=== PATIENT | female | born 1955 | race Caucasian/White ===

== ENCOUNTER 2016-07-04 13:31 | Outpatient (CLI) | payer BC, OTHER | END 2016-07-04 13:32 | disposition home or self-care (01) | DX: R50.9 Fever, unspecified (principal); D89.9 Disorder involving the immune mechanism, unspecified ==

== ENCOUNTER 2016-08-13 15:10 | Outpatient (CLI) | payer OTHER | END 2016-08-13 15:11 | disposition home or self-care (01) | DX: I10 Essential (primary) hypertension (principal) ==

== ENCOUNTER 2016-08-30 10:01 | Outpatient (CLI) | payer OTHER | END 2016-08-30 10:02 | disposition home or self-care (01) | DX: L27.0 Generalized skin eruption due to drugs and medicaments taken internally (principal) ==

== ENCOUNTER 2017-07-04 12:56 | Outpatient (CLI) | payer OTHER ==
--- NOTE | 2017-07-04 17:57 | Ultrasound Report ---
DATE OF SERVICE: 07/04/2017 ULTRASOUND OF RIGHT AXILLA: 07/04/2017 CLINICAL INDICATION: Palpable abnormality. 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 FINDINGS: Ultrasound of the right axilla was performed, directed to the region of the palpable abnormality indicated by the patient. Unremarkable axillary lymph nodes are seen. The largest lymph node measures 3.4 x 1.7 x 1.1 cm, but demonstrates a large fatty hilum and no cortical thickening. No sonographically suspicious findings are identified. IMPRESSION: AXILLARY LYMPH NODE, LIKELY CORRELATING WITH THE PALPABLE ABNORMALITY, BUT NO CORTICAL THICKENING OR OTHER SUSPICIOUS FINDINGS ARE APPRECIATED. RECOMMENDATION: CONTINUED CLINICAL SURVEILLANCE. BIRADS CATEGORY 2-BENIGN FINDINGS. TD: 07/04/2017 18:57
--- NOTE | 2017-07-04 18:30 | Mammography Report ---
DATE OF SERVICE: 07/04/2017 DIGITAL DIAGNOSTIC BILATERAL MAMMOGRAM: 07/04/2017 CLINICAL INDICATION: Palpable abnormality right axilla on clinical examination. COMPARISON: 10/2014, 09/2012, 11/2009, 11/2008, 11/2007. TECHNIQUE: Bilateral CC and MLO views, right true lateral view. The breasts demonstrate fatty replacement bilaterally. Coarse and punctate, typically benign calcifications are present. No suspicious masses, clustered microcalcifications, or regions of architectural distortion are identified. Post-reduction changes are stable. Please also refer to right breast ultrasound of the same day. IMPRESSION: Benign findings, with an axillary lymph node on ultrasound without cortical thickening or suspicious changes. RECOMMENDATIONS: Routine annual screening unless otherwise clinically indicated. BIRADS category 2 benign findings. STANDARD QUALIFYING STATEMENTS 1. This examination was reviewed with the aid of Computed-Aided Detection (CAD). 2. A negative or benign imaging report should not delay biopsy if clinically suspicious findings are present. Consider surgical consultation if warranted. More than 5% of cancers are not identified by imaging. 3. Dense breasts may obscure an underlying neoplasm. TD: 07/04/2017 19:29
== END 2017-07-04 12:57 | disposition home or self-care (01) ==
LOC: DI 12:56
PROVIDERS: ATTEND Nurse Practitioner Family
DX: N63.10 Unspecified lump in the right breast, unspecified quadrant (principal)
CPT/HCPCS: 76642; 77066

== ENCOUNTER 2017-11-11 02:12 | Emergency (ER) | payer OTHER ==
[2017-11-11 02:38] LABS: BASOPHILS % (AUTO) 0.9 %; EOSINOPHILS # (AUTO) 0.1 10^3/uL (0.0-0.7); EOSINOPHILS % (AUTO) 2.7 %; HGB - HEMOGLOBIN 14.1 g/dL (12.0-16.0); LYMPHOCYTES # (AUTO) 0.8 10^3/uL (1.5-3.5); MEAN CORPUSCULAR HEMOGLOBIN 33.7 pg (27.0-31.0); MEAN CORPUSCULAR HGB CONC 34.2 g/dL (32.0-36.0); MEAN CORPUSCULAR VOLUME 98.6 fL (81.0-99.0); MEAN PLATELET VOLUME 7.7 fL (7.9-10.8); MONOCYTES # (AUTO) 0.5 10^3/uL (0.0-1.0); MONOCYTES % (AUTO) 11.6 %; NEUTROPHILS # (AUTO) 2.8 10^3/uL (1.5-6.6); NEUTROPHILS % (AUTO) 65.8 %; PLT - PLATELET COUNT 170 10^3/uL (130-450); RED BLOOD COUNT 4.18 10^6/uL (4.20-5.40); RED CELL DISTRIBUTION WIDTH 16.3 % (12.0-15.0); WHITE BLOOD COUNT 4.2 x10^3/uL (4.8-10.8)
[2017-11-11 02:49] LABS: ALBUMIN/GLOBULIN RATIO 1.5 (1.0-2.2); BILIRUBIN,TOTAL 0.6 mg/dL (0.2-1.0); CALCIUM 9.9 mg/dL (8.5-10.3); CREATININE 0.7 mg/dL (0.4-1.0); TOTAL PROTEIN 6.6 g/dL (6.7-8.2)
--- NOTE | 2017-11-11 03:08 | ED Physician Documentation ---
PD HPI ABD PAIN - Stated complaint Stated Complaint: UPPER ABDOMINAL PAIN - Chief complaint Chief Complaint: Abd Pain - History obtained from History obtained from: Patient - History of Present Illness Timing - onset: Enter time (22:00), Today Timing - details: Abrupt onset Pain level max: 8 Pain level now: 5 Quality: Pain Location: Epigastric Radiation: No: Chest, , Lower back, Left flank, Left shoulder, Right flank, Right shoulder, Upper back Improved by: Vomiting Worsened by: Other (no exacerbating factors) Associated symptoms: Nausea, Vomiting. 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 HEENT: Tonsil/Adenoidectomy - Present Medications Home Medications: Ambulatory Orders Medication Instructions Recorded Confirmed Aspirin 1 tab ORAL DAILY 08/22/16 11/11/17 Cholecalciferol (Vitamin D3) 1 tab ORAL DAILY 08/22/16 11/11/17 [Vitamin D3] Irbesartan [Irbesartan] 300 mg ORAL DAILY 08/22/16 11/11/17 Lenalidomide [Revlimid] 1 tab ORAL DAILY 08/22/16 11/11/17 Pantoprazole [Protonix] 40 mg PO DAILY PM 10/24/16 11/11/17 Irbesartan [Irbesartan] 11/11/17 Prochlorperazine [Compazine] 10 mg PO Q6H PRN #14 tablet 11/11/17 Valacyclovir HCl [Valacyclovir] 11/11/17 oxyCODONE [Roxicodone] 5 - 10 mg PO Q6H PRN #20 tablet 11/11/17 - Allergies Allergies/Adverse Reactions: Allergies Allergy/AdvReac Type Severity Reaction Status Date / Time amoxicillin [From Augmentin] AdvReac Rash Verified 11/11/17 02:21 clavulanic acid AdvReac Rash Verified 11/11/17 02:21 [From Augmentin] lorazepam AdvReac Hallucinati Verified 11/11/17 02:21 ons ondansetron [From Zofran] AdvReac Headache Verified 11/11/17 02:21 - Social History Does the pt smoke?: No Smoking Status: Never smoker Does the pt drink ETOH?: Yes Does the pt have substance abuse?: No PD ED PE NORMAL - Vitals Vital signs reviewed: Yes - General General: Alert and oriented X 3, No acute distress, Well developed/nourished - Cardiac Cardiac: RRR, No murmur - Respiratory Respiratory: No respiratory distress - Abdomen Abdomen: Normal bowel sounds, Soft, Non distended, Other (mild right upper quadrant tenderness without rebound or gusrding) - Back Back: No CVA TTP - Derm Derm: No rash - Extremities Extremities: No edema Results - Vitals Vitals: Oxygen O2 Source Room air - Labs Labs: Laboratory Tests 11/11/17 11/11/17 02:28 02:28 WBC 4.2 L RBC 4.18 L Hgb 14.1 Hct 41.2 MCV 98.6 MCH 33.7 H MCHC 34.2 RDW 16.3 H Plt Count 170 MPV 7.7 L Neut # 2.8 Lymph # 0.8 L Kershaw # 0.5 Eos # 0.1 Baso # 0.0 Absolute Nucleated RBC 0.00 Nucleated RBC % 0.1 Sodium 138 Potassium 3.3 L Chloride 100 L Carbon Dioxide 28 Anion Gap 10.0 BUN 10 Creatinine 0.7 Estimated GFR (MDRD) 84 L Glucose 132 H Calcium 9.9 Total Bilirubin 0.6 AST 22 ALT 26 Alkaline Phosphatase 81 Total Protein 6.6 L Albumin 4.0 Globulin 2.6 Albumin/Globulin Ratio 1.5 Lipase 31 - Rads (name of study) RUQ US Radiology: Prelim report reviewed, See rad report PD MEDICAL DECISION MAKING - ED course Complexity details: reviewed results, re-evaluated patient, considered differential, d/w patient, d/w family ED course: declined analgesics during ED stay, requested one dose antinauseant during ED stay. afebrile, reassuring blood work (low WBC is improved from previous). D/W Dr. Sebas Dawson, including US results and test results; as patient is afebrile with reassuring blood tests and has such mild pain as to not require analgesics , patient would be appropriate for outpatient f/u. patient and spouse are comfortable with this plan. Departure - Departure Disposition: 01 Home, Self Care Clinical Impression: Cholecystitis Condition: Good Instructions: ED Gallstone W Biliary Colic Follow-Up: Bala Haas MD [Primary Care Provider] - Francisco Dawson MD [Provider Admit Priv/Credential] - Prescriptions: oxyCODONE [Roxicodone] 5 - 10 mg PO Q6H PRN #20 tablet PRN Reason: Pain Prochlorperazine [Compazine] 10 mg PO Q6H PRN #14 tablet PRN Reason: Nausea / Vomiting Discharge Date/Time: 11/11/17 07:13
[2017-11-11] MEDS ORDERED: PROCHLORPERAZINE INJ 10 MG in SODIUM CHLORIDE 0.9% 50 ML IV ONE (04:41)
--- NOTE | 2017-11-11 05:45 | Ultrasound Report ---
EXAM: ABDOMEN ULTRASOUND LIMITED, RUQ EXAM DATE: 11/11/2017 05:17 AM. CLINICAL HISTORY: Vertigo quadrant abdominal pain and diarrhea COMPARISON: None. TECHNIQUE: Real-time scanning was performed with static images obtained. FINDINGS: Liver: Normal echogenicity. No suspicious focal lesion. Liver measures 13.8 cm in length. Portal Vein: Patent with hepatopetal flow. Gallbladder: Gallbladder is distended with moderate wall thickening. Mild associated distention of t he gallbladder with moderate to severe gallbladder wall thickening. Positive sonographic Long sign. Biliary System: CBD measures 5.9 mm. No intrahepatic or extrahepatic ductal dilatation. Pancreas: Normal appearing head and body. Other portions are obscured by overlying structures. Right Kidney: Visualized portions of the right kidney are without significant abnormality. Right kid bran measures 11.9 cm in length. Other: None. IMPRESSION: 1. There is a gallstone lodged within the gallbladder neck with findings of acute cholecystitis. 2. No biliary ductal dilation. [facility] Referring Provider Line: [phone] SITE ID: [id number]
--- NOTE | 2017-11-11 05:45 | Ultrasound Preliminary Report ---
Exam: US ABDOMEN LIMITED IMPRESSION: 1. There is a gallstone lodged within the gallbladder neck with findings of acute cholecystitis. 2. No biliary ductal dilation. [facility] SITE ID: [id number]
[2017-11-11 07:14] VITALS: BP 166/100
== END 2017-11-11 07:13 | disposition home or self-care (01) ==
LOC: ED 02:12
DX: K80.00 Calculus of gallbladder with acute cholecystitis without obstruction (principal); K21.9 Gastro-esophageal reflux disease without esophagitis; Z79.82 Long term (current) use of aspirin
CPT/HCPCS: 36415; 76705; 80053; 83690; 85025; 93005; 96374; 99283; 99284; J7040

== ENCOUNTER 2017-11-29 09:28 | Outpatient (CLI) | payer OTHER | END 2017-11-29 09:29 | disposition critical access hospital (66) | LOC: EMS 09:28 | PROVIDERS: ATTEND Surgery | DX: R07.81 Pleurodynia (principal); W01.10XA Fall on same level from slipping, tripping and stumbling with subsequent striking against unspecified object, initial encounter; Y93.01 Activity, walking, marching and hiking; Y99.8 Other external cause status | CPT/HCPCS: A0425; A0427 ==

== ENCOUNTER 2017-11-29 09:56 | Emergency (ER) | payer OTHER ==
[2017-11-29] MEDS ORDERED: MORPHINE 2 MG/ML SYRINGE IVP STA (10:24)
[2017-11-29] MEDS ORDERED: TETANUS/DIPHTHERIA/PERTUSSIS 0.5 ML SYRINGE IM ONE (10:26)
--- NOTE | 2017-11-29 10:30 | ED Physician Documentation ---
History of Present Illness - Stated complaint Stated Complaint: GLF - Chief complaint Chief Complaint: General - Additonal information Additional information: hx from pt 62 f hx multiple myeloma s/p stem cell transplant in remission on revlimid but not severely immunocompromised out for a walk slipped fell forward and left hit head, no LOC, bruising and lac L fac mild lateral neck pain L shoulder and scapula and rib pain L knee and ankle pain no blood thinners was at baseline health prior to fall Review of Systems Cardiac: reports: Chest pain / pressure GI: denies: Abdominal Pain Skin: reports: Laceration (s) Musculoskeletal: reports: Neck pain, Extremity pain, Joint pain Neurologic: reports: Headache, Head injury. 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 HEENT: Tonsil/Adenoidectomy - Present Medications Home Medications: Ambulatory Orders Medication Instructions Recorded Confirmed Aspirin 1 tab ORAL DAILY 08/22/16 11/11/17 Cholecalciferol (Vitamin D3) 1 tab ORAL DAILY 08/22/16 11/11/17 [Vitamin D3] Irbesartan [Irbesartan] 300 mg ORAL DAILY 08/22/16 11/11/17 Lenalidomide [Revlimid] 1 tab ORAL DAILY 08/22/16 11/11/17 Pantoprazole [Protonix] 40 mg PO DAILY PM 10/24/16 11/11/17 Irbesartan [Irbesartan] 11/11/17 Prochlorperazine [Compazine] 10 mg PO Q6H PRN #14 tablet 11/11/17 Valacyclovir HCl [Valacyclovir] 11/11/17 oxyCODONE [Roxicodone] 5 - 10 mg PO Q6H PRN #20 tablet 11/11/17 Lidocaine Patch 5% [Lidoderm Patch] 1 each TOP DAILY PRN #10 patch 11/29/17 Oxycodone HCl/Acetaminophen 1 each PO Q6HR PRN #15 tablet 11/29/17 [Percocet 5-325 mg Tablet] - Allergies Allergies/Adverse Reactions: Allergies Allergy/AdvReac Type Severity Reaction Status Date / Time amoxicillin [From Augmentin] AdvReac Rash Verified 11/11/17 02:21 clavulanic acid AdvReac Rash Verified 11/11/17 02:21 [From Augmentin] lorazepam AdvReac Hallucinati Verified 11/11/17 02:21 ons ondansetron [From Zofran] AdvReac Headache Verified 11/11/17 02:21 - Social History Does the pt smoke?: No Smoking Status: Never smoker Does the pt drink ETOH?: Yes Does the pt have substance abuse?: No PD ED PE NORMAL - Vitals Vital signs reviewed: Yes - General General: Alert and oriented X 3 - HEENT HEENT: PERRL. No: Atraumatic (eccymosis and swelling super L orbit, sup andinf orbit TTP s crepitus or step off, no hyphema or proptosis, no lomas sigm, no hemotympanum, has a blue TM tube) - Neck Neck: No bony TTP (but TTP diffusely L side) - Cardiac Cardiac: RRR - Respiratory Respiratory: No respiratory distress, Clear bilaterally, Other (TTP L ribs) - Abdomen Abdomen: Soft, Non tender, Other (no splenic TTP) - Derm Derm: Normal color - Extremities Extremities: No deformity, Other (TTP prox ant tibia / K knee s laxity, TTP lateral mall and ST inf and base of 5th, TTP to posterior L shoulder, MSV to both LUE and LLE) Results - Vitals Vitals: Vital Signs - 24 hr 11/29/17 11/29/17 11/29/17 09:59 11:24 12:25 Temperature 36.3 C L 36.5 C Heart Rate 67 63 68 Respiratory 16 16 18 Rate Blood Pressure 142/79 H 126/81 H 142/79 H O2 Saturation 98 95 99 11/29/17 13:34 Temperature Heart Rate 74 Respiratory 18 Rate Blood Pressure 123/71 O2 Saturation 100 Oxygen O2 Source Room air - Rads (name of study) CTH Radiology: See rad report (neg) CTCS Radiology: See rad report (no fx no degen changes) CT FB Radiology: See rad report (no fx, STS) CXR ribs Radiology: See rad report (L 5th rib fx s pneumo or hemo) ankle Radiology: See rad report (no acute) knee Radiology: See rad report (STS degen) foot Radiology: See rad report (normal) shoulder Radiology: See rad report (humeral neck fx) Procedures - Laceration (location) face Length in cm: 1 Wound type: Linear Neurovascular status: Sensory intact, Motor intact Wound Preparation: Irrigated copiously NS Skin layer closure: Dermabond Other: Patient tolerated well, Tetanus booster given Complexity: Simple PD MEDICAL DECISION MAKING - Sepsis Event Vital Signs: Vital Signs - 24 hr 11/29/17 11/29/17 11/29/17 09:59 11:24 12:25 Temperature 36.3 C L 36.5 C Heart Rate 67 63 68 Respiratory 16 16 18 Rate Blood Pressure 142/79 H 126/81 H 142/79 H O2 Saturation 98 95 99 11/29/17 13:34 Temperature Heart Rate 74 Respiratory 18 Rate Blood Pressure 123/71 O2 Saturation 100 Oxygen O2 Source Room air Departure - Departure Disposition: 01 Home, Self Care Clinical Impression: Fracture, humerus closed Qualifiers: Encounter type: initial encounter Humerus Location: surgical neck Fracture morphology: unspecified fracture morphology Fracture alignment: nondisplaced Laterality: left Qualified Code(s): S42.215A - Unspecified nondisplaced fracture of surgical neck of left humerus, initial encounter for closed fracture Rib fracture Qualifiers: Encounter type: initial encounter Rib fracture type: single rib Fracture type: closed Laterality: left Qualified Code(s): S22.32XA - Fracture of one rib, left side, initial encounter for closed fracture Head injury Qualifiers: Encounter type: initial encounter Qualified Code(s): S09.90XA - Unspecified injury of head, initial encounter Facial contusion Qualifiers: Encounter type: initial encounter Qualified Code(s): S00.83XA - Contusion of other part of head, initial encounter Laceration of face Qualifiers: Encounter type: initial encounter Qualified Code(s): S01.81XA - Laceration without foreign body of other part of head, initial encounter Condition: Good Instructions: ED Fx Rib, ED Fx Shoulder Follow-Up: [facility] [Provider Group] Prescriptions: Oxycodone HCl/Acetaminophen [Percocet 5-325 mg Tablet] 1 each PO Q6HR PRN #15 tablet PRN Reason: Severe Pain Lidocaine Patch 5% [Lidoderm Patch] 1 each TOP DAILY PRN #10 patch PRN Reason: Pain Comments: You broke the humerus of your left shoulder and one rib on the left I have prescribed lidocaine patches and percocet for the pain Ice for twenty minutes at a time will help too Follow up with orthopedics this week about the shoulder. Use the incentive spirometer to prevent lung collapse and infection Return if worse
[2017-11-29] MEDS ORDERED: PROMETHAZINE INJ 12.5 MG in SODIUM CHLORIDE 0.9% 50 ML IV STA (10:35)
[2017-11-29] MEDS ORDERED: ACETAMINOPHEN 1,000 MG/100 ML 100 ML IV STA (10:35)
--- NOTE | 2017-11-29 12:05 | CT Report ---
Procedure Date: 11/29/2017 Accession Number: [id number] / [id number] Procedure: CT - Head W/O CPT Code: FULL RESULT: EXAM: CT HEAD EXAM DATE: 11/29/2017 11:48 AM. CLINICAL HISTORY: Trauma and fall with left-sided facial and head injury. COMPARISON: HEAD W/O 12/29/2014. TECHNIQUE: Multiaxial CT images were obtained from the foramen magnum to the vertex. Reformats: Coronal. IV contrast: None. In accordance with CT protocol optimization, one or more of the following dose reduction techniques were utilized for this exam: automated exposure control, adjustment of mA and/or KV based on patient size, or use of iterative reconstructive technique. FINDINGS: Parenchyma: No intraparenchymal hemorrhage. No evidence of mass, midline shift, or CT findings of infarction. Dickinson-white differentiation is distinct. Extraaxial Spaces: Normal for age. No subdural or epidural collections identified. Ventricles: Normal in size and position. Sinuses and Orbits: Imaged paranasal sinuses, orbits, and mastoids show no significant abnormality. Bones: No evidence of fracture or calvarial defect. Other: None. IMPRESSION: Normal head CT. [facility]
--- NOTE | 2017-11-29 12:06 | CT Report ---
Procedure Date: 11/29/2017 Accession Number: [id number] / [id number] Procedure: CT - Cervical Spine W/O CPT Code: FULL RESULT: EXAM: CT CERVICAL SPINE WITHOUT CONTRAST DATE: 11/29/2017 11:48 AM. HISTORY: Fall HI. COMPARISONS: Head w/o 12/29/2014. TECHNIQUE: Thin-section axial images were acquired of the cervical spine without contrast. Post-processing: Coronal and sagittal reformats. Other: None. In accordance with CT protocol optimization, one or more of the following dose reduction techniques were utilized for this exam: automated exposure control, adjustment of mA and/or KV based on patient size, or use of iterative reconstructive technique. FINDINGS: Alignment: No scoliosis or spondylolisthesis. Bones: No fracture or bone lesion. Interspace Levels/Facets: Mild multilevel degenerative disk disease from C4-C5 down to C7-T1. Mild bilateral mid cervical facet arthropathy. Degenerative cyst versus hemangioma in C3. Musculature: Normal. No fatty atrophy. Other: The paravertebral and prevertebral soft tissues are unremarkable. The lung apices are clear. Incidental 1 cm hypoattenuated cyst or nodule in the left thyroid. IMPRESSION: 1. No fracture or listhesis. 2. Multilevel degenerative spondylosis. [facility]
--- NOTE | 2017-11-29 12:08 | CT Report ---
Procedure Date: 11/29/2017 Accession Number: [id number] / [id number] Procedure: CT - Facial Bones W/O CPT Code: FULL RESULT: EXAM: CT MAXILLOFACIAL WITHOUT CONTRAST EXAM DATE: 11/29/2017 11:48 AM. CLINICAL HISTORY: Fall left orbit injury. COMPARISONS: HEAD W/O 12/29/2014. TECHNIQUE: Thin-section axial images were acquired of the face without contrast. Post-processing: Coronal and sagittal reformats. Other: None. In accordance with CT protocol optimization, one or more of the following dose reduction techniques were utilized for this exam: automated exposure control, adjustment of mA and/or KV based on patient size, or use of iterative reconstructive technique. FINDINGS: Soft Tissue: The infratemporal fossa and parapharyngeal spaces are unremarkable. Orbits: Symmetric and unremarkable. Bones: No fracture or bone lesion. Temporomandibular Joints: The temporomandibular joints are symmetric and normally located. Sinuses: Normal. No mucosal thickening or fluid levels. Soft tissues: Mild soft tissue swelling adjacent to the lateral aspect of the left eye. Soft tissues otherwise unremarkable. No mass or fluid collection is seen. IMPRESSION: 1. Mild lateral periorbital soft tissue swelling. 2. No evidence of acute fracture. Facial bones intact. Orbits and sinuses intact. [facility]
--- NOTE | 2017-11-29 13:03 | XRAY Report ---
Procedure Date: 11/29/2017 Accession Number: [id number] / [id number] Procedure: XR - Shoulder 3 View LT CPT Code: FULL RESULT: EXAM: LEFT SHOULDER RADIOGRAPHY EXAM DATE: 11/29/2017 12:41 PM. CLINICAL HISTORY: Left shoulder pain. COMPARISON: None. TECHNIQUE: 3 views. FINDINGS: Bones: There is a impacted minimally displaced humeral neck fracture seen. Remainder osseous structures are intact. Joints: There is mild inferior subluxation of the humeral head likely due to underlying joint effusion. Mild degenerative changes are present. Soft tissues: The visualized hemithorax is unremarkable. No soft tissue swelling. IMPRESSION: Impacted minimally displaced humeral neck fracture. [facility]
--- NOTE | 2017-11-29 13:04 | XRAY Report ---
Procedure Date: 11/29/2017 Accession Number: [id number] / [id number] Procedure: XR - Ankle 3 View LT CPT Code: FULL RESULT: EXAM: LEFT ANKLE RADIOGRAPHY EXAM DATE: 11/29/2017 12:40 PM. CLINICAL HISTORY: Left ankle pain. COMPARISON: None. TECHNIQUE: 3 views. FINDINGS: Bones: No fracture or bone lesion is identified. Plantar spurring is seen. Joints: Minor degenerative changes are seen in the ankle joints. Soft Tissues: Normal. No soft tissue swelling. IMPRESSION: No acute findings. [facility]
--- NOTE | 2017-11-29 13:05 | XRAY Report ---
Procedure Date: 11/29/2017 Accession Number: [id number] / [id number] Procedure: XR - Knee 3 View LT CPT Code: FULL RESULT: EXAM: LEFT KNEE RADIOGRAPHY EXAM DATE: 11/29/2017 12:36 PM. CLINICAL HISTORY: Left knee pain. COMPARISON: None. TECHNIQUE: 3 views. FINDINGS: Bones: Normal. No fractures or bone lesions. Joints: Mild tricompartmental DJD changes are seen. No effusion or malalignment. Soft Tissues: Normal. No soft tissue swelling. IMPRESSION: No acute findings. Mild DJD. [facility]
--- NOTE | 2017-11-29 13:05 | XRAY Report ---
Procedure Date: 11/29/2017 Accession Number: [id number] / [id number] Procedure: XR - Foot 3 View LT CPT Code: FULL RESULT: EXAM: LEFT FOOT RADIOGRAPHY EXAM DATE: 11/29/2017 12:38 PM. CLINICAL HISTORY: Left foot pain. COMPARISON: None. TECHNIQUE: 3 views. FINDINGS: Bones: Plantar spurring is present. No fractures or bone lesions. Joints: Minor degenerative changes are seen in the ankle and midfoot structures. No subluxations. Soft Tissues: Normal. No soft tissue swelling. IMPRESSION: No acute findings. [facility]
--- NOTE | 2017-11-29 13:08 | XRAY Report ---
Procedure Date: 11/19/2017 Accession Number: [id number] / [id number] Procedure: XR - Ribs w/PA Chest LT CPT Code: FULL RESULT: EXAM: LEFT RIB RADIOGRAPHY EXAM DATE: 11/19/2017 11:45 AM. CLINICAL HISTORY: Left rib pain. COMPARISON: None. TECHNIQUE: 1 view of the chest and 2 views of the ribs. FINDINGS: Bones: Nondisplaced lateral fifth rib fracture seen. Nondisplaced left humeral neck fracture is also seen. Remainder osseous structures are grossly intact. Lungs: No focal opacities. No pneumothorax. No pleural effusions. Mediastinum: Heart and mediastinal contours are unremarkable. Other: None. IMPRESSION: Nondisplaced left lateral fifth rib and left humeral neck fractures. [facility]
[2017-11-29 13:35] VITALS: BP 123/71
[2017-11-29] MEDS ORDERED: oxyCOD/ACETAMIN 5 MG/325 MG TABLET PO STA (14:21)
[2017-11-29] MEDS ORDERED: LIDOCAINE PATCH 5% TOP PRN (14:21)
== END 2017-11-29 14:52 | disposition home or self-care (01) ==
LOC: EDUNIT# → ED 09:56
DX: S42.215A Unspecified nondisplaced fracture of surgical neck of left humerus, initial encounter for closed fracture (principal); S22.32XA Fracture of one rib, left side, initial encounter for closed fracture; S09.90XA Unspecified injury of head, initial encounter; S00.83XA Contusion of other part of head, initial encounter; S01.81XA Laceration without foreign body of other part of head, initial encounter; M50.31 Other cervical disc degeneration, high cervical region; M47.892 Other spondylosis, cervical region; M17.12 Unilateral primary osteoarthritis, left knee; Z23 Encounter for immunization; W01.198A Fall on same level from slipping, tripping and stumbling with subsequent striking against other object, initial encounter; Y93.01 Activity, walking, marching and hiking; Z79.82 Long term (current) use of aspirin
CPT/HCPCS: 12011; 70450; 70486; 71101; 72125; 73030; 73562; 73610; 73630; 90471; 90715; 96365; 96375; 99284; A9270; J0131; J2270; J7040

== ENCOUNTER 2018-06-27 14:01 | Outpatient (CLI) | payer OTHER | END 2018-06-27 14:02 | disposition critical access hospital (66) | LOC: EMS 14:01 | PROVIDERS: ATTEND Surgery | DX: R07.9 Chest pain, unspecified (principal) | CPT/HCPCS: A0425; A0429 ==

== ENCOUNTER 2018-06-27 14:25 | Emergency (ER) | payer OTHER ==
[2018-06-27] MEDS ORDERED: IOVERSOL 320 100 ML VIAL IVP ONE ×3 (14:26→18:01)
--- NOTE | 2018-06-27 14:59 | ED Physician Documentation ---
History of Present Illness - Stated complaint Stated Complaint: CP - Chief complaint Chief Complaint: Cardiac - Additonal information Additional information: hx from pt 62 f hx multiple myeloma in remission on maintenan chemo has had low back pain recently - seen at [facility] concern for pyelo but that checked out OK yesterday afternoon develped sharp chest pain pain lasted all evening all night and this morning got worse radiated straight through to her back and into her R jaw + nausea no SOA sweats or vomiting called 911, took asa, sx now resolved no leg swelling feels like prior GB sx but has had a cholecystectomy Review of Systems Constitutional: denies: Fever, Chills Cardiac: reports: Chest pain / pressure Respiratory: denies: Dyspnea, Cough GI: denies: Abdominal Pain Musculoskeletal: reports: Neck pain (R jaw), Back pain Endocrine: denies: Easy bruising / bleeding Immunocompromised: denies: Immunocompromised PD PAST MEDICAL HISTORY - Past Medical History Cardiovascular: None Respiratory: None Endocrine/Autoimmune: None GI: GERD : None HEENT: Chronic hearing loss Psych: Anxiety Musculoskeletal: Other Derm: None - Past Surgical History Past Surgical History: Yes Ortho: Rotator cuff repair /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: Hysterectomy HEENT: Tonsil/Adenoidectomy - Present Medications Home Medications: Ambulatory Orders Medication Instructions Recorded Confirmed Aspirin 1 tab ORAL DAILY 08/22/16 11/11/17 Cholecalciferol (Vitamin D3) 1 tab ORAL DAILY 08/22/16 11/11/17 [Vitamin D3] Irbesartan 300 mg ORAL DAILY 08/22/16 11/11/17 Lenalidomide [Revlimid] 1 tab ORAL DAILY 08/22/16 11/11/17 Pantoprazole [Protonix] 40 mg PO DAILY PM 10/24/16 11/11/17 Irbesartan 11/11/17 Calcium Carbonate/Vitamin D3 06/27/18 [Calcium 600-Vit D3 800 Tablet] Multivitamin W/Minerals [Theragran 06/27/18 M] Sucralfate [Carafate] 1 gm PO ACHS #120 tablet 06/27/18 raNITIdine [Zantac] 150 mg PO BID #60 tablet 06/27/18 - Allergies Allergies/Adverse Reactions: Allergies Allergy/AdvReac Type Severity Reaction Status Date / Time amoxicillin [From Augmentin] AdvReac Rash Verified 06/27/18 14:37 clavulanic acid AdvReac Rash Verified 06/27/18 14:37 [From Augmentin] lorazepam AdvReac Hallucinati Verified 06/27/18 14:37 ons ondansetron [From Zofran] AdvReac Headache Verified 06/27/18 14:37 - Social History Does the pt smoke?: No Smoking Status: Never smoker Does the pt drink ETOH?: Yes Does the pt have substance abuse?: No PD ED PE NORMAL - Vitals Vital signs reviewed: Yes - Cardiac Cardiac: RRR, No murmur - Respiratory Respiratory: No respiratory distress - Abdomen Abdomen: Soft, Non tender - Derm Derm: Normal color - Extremities Extremities: No edema, No calf tenderness / cord - Neuro Neuro: Alert and oriented X 3, 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 2-12 intact, No motor deficit, No sensory deficit, Normal speech Results - Vitals Vitals: Vital Signs - 24 hr 06/27/18 14:27 Temperature 36.2 C L Heart Rate 74 Respiratory 16 Rate Blood Pressure 220/95 H O2 Saturation 97 Oxygen O2 Source Room air - EKG (time done) 1437 Rate: Rate (enter#) (61) Rhythm: NSR [place]: LAD Intervals: Normal [place] Ischemia: Normal ST segments - Labs Labs: Laboratory Tests 06/27/18 06/27/18 06/27/18 15:10 15:10 15:10 WBC 4.6 L RBC 4.27 Hgb 14.4 Hct 41.6 MCV 97.5 MCH 33.6 H MCHC 34.5 RDW 13.7 Plt Count 181 MPV 7.9 Neut # (Auto) 2.6 Lymph # (Auto) 1.1 L [place] # (Auto) 0.8 Eos # (Auto) 0.1 Baso # (Auto) 0.0 Absolute Nucleated RBC 0.00 Nucleated RBC % 0.0 Sodium 137 Potassium 3.5 Chloride 102 Carbon Dioxide 26 Anion Gap 9.0 BUN 8 Creatinine 0.5 Estimated GFR (MDRD) 124 Glucose 109 H Calcium 11.2 H Total Bilirubin 0.9 AST 21 ALT 30 Alkaline Phosphatase 79 Troponin I < 0.04 Total Protein 6.9 Albumin 4.1 Globulin 2.8 Albumin/Globulin Ratio 1.5 Lipase 25 - Rads (name of study) CXR Radiology: See rad report (no acute) CTA chest Radiology: See rad report (no aneurysm, no dissection, no PE) Departure - Departure Disposition: Home, Self Care Clinical Impression: Hiatal hernia Chest pain Qualifiers: Chest pain type: unspecified Qualified Code(s): R07.9 - Chest pain, unspecified Condition: Good Instructions: ED GERD, Hiatal Hernia Follow-Up: Bala Haas MD [Primary Care Provider] - Prescriptions: raNITIdine [Zantac] 150 mg PO BID #60 tablet Sucralfate [Carafate] 1 gm PO ACHS #120 tablet Comments: You had a very extensive work up in the ER and the results are very reassuring. The EKG and blood test for your heart do not indicate a heart attack. ll the blood work was fine except for a slightly high calcium level - this could be related to your multiple myeloma so please follow up with your PMD about that - but it wouldn't cause pain The xray and CT scan did not show any lung infection/fluid/tumor/collapse, fluid around the heart, aneurysm or tear of your aorta nor a pulmonary embolus. The CT scan did show a large hiatal hernia - so it is possible that the pain is from acid reflux and I have prescribed medication for that
[2018-06-27 15:18] LABS: BASOPHILS % (AUTO) 0.9 %; EOSINOPHILS # (AUTO) 0.1 10^3/uL (0.0-0.7); EOSINOPHILS % (AUTO) 1.6 %; HGB - HEMOGLOBIN 14.4 g/dL (12.0-16.0); LYMPHOCYTES # (AUTO) 1.1 10^3/uL (1.5-3.5); LYMPHOCYTES % (AUTO) 23.7 %; MEAN CORPUSCULAR HEMOGLOBIN 33.6 pg (27.0-31.0); MEAN CORPUSCULAR HGB CONC 34.5 g/dL (32.0-36.0); MEAN CORPUSCULAR VOLUME 97.5 fL (81.0-99.0); MEAN PLATELET VOLUME 7.9 fL (7.9-10.8); MONOCYTES # (AUTO) 0.8 10^3/uL (0.0-1.0); MONOCYTES % (AUTO) 17.3 %; NEUTROPHILS # (AUTO) 2.6 10^3/uL (1.5-6.6); NEUTROPHILS % (AUTO) 56.5 %; PLT - PLATELET COUNT 181 10^3/uL (130-450); RED BLOOD COUNT 4.27 10^6/uL (4.20-5.40); RED CELL DISTRIBUTION WIDTH 13.7 % (12.0-15.0); WHITE BLOOD COUNT 4.6 x10^3/uL (4.8-10.8)
[2018-06-27 15:31] LABS: ALBUMIN 4.1 g/dL (3.2-5.5); ALBUMIN/GLOBULIN RATIO 1.5 (1.0-2.2); BILIRUBIN,TOTAL 0.9 mg/dL (0.2-1.0); CALCIUM 11.2 mg/dL (8.5-10.3); CREATININE 0.5 mg/dL (0.4-1.0); TOTAL PROTEIN 6.9 g/dL (6.7-8.2)
--- NOTE | 2018-06-27 15:54 | XRAY Report ---
Reason: cp radiate to the back Procedure Date: 06/27/2018 Accession Number: [id number] / [id number] Procedure: XR - Chest 2 View X-Ray CPT Code: 34066 FULL RESULT: EXAM: CHEST RADIOGRAPHY EXAM DATE: 06/27/2018 03:08 PM. CLINICAL HISTORY: Cp radiate to the back. COMPARISON: RIBS W/PA CHEST LT 11/29/2017 11:39 AM. TECHNIQUE: 2 views. FINDINGS: There is redemonstration of a moderate hiatal hernia. The heart is not enlarged. Increased lung markings are again noted in the left lung base that most likely represent atelectasis. The appearance is similar to the previous study. No infiltrate, pleural effusion or pneumothorax is seen. IMPRESSION: No significant change when compared to the previous study. RADIA
--- NOTE | 2018-06-27 16:51 | CT Report ---
Reason: sharp chest pain radiate into back Procedure Date: 06/27/2018 Accession Number: [id number] / [id number] Procedure: CT - Chest Angio (AORTA) CPT Code: FULL RESULT: EXAM: CT CHEST EXAM DATE: 06/27/2018 04:32 PM. CLINICAL HISTORY: Sharp chest pain radiate into back. COMPARISONS: None. TECHNIQUE: Routine helical CT imaging was performed through the chest. IV contrast: None. Reconstructions: Coronal and sagittal. In accordance with CT protocol optimization, one or more of the following dose reduction techniques were utilized for this exam: automated exposure control, adjustment of mA and/or KV based on patient size, or use of iterative reconstructive technique. FINDINGS: Thoracic aorta: The thoracic aorta is without evidence of aneurysmal dilatation or dissection. Lungs/Pleura: There is adequate opacification of the pulmonary arteries. There is no filling defect to suggest the presence of a pulmonary embolus. Mediastinum: No mediastinal mass is identified. There is a moderate hiatal hernia. Bones: Degenerative changes of the thoracic spine are noted. There is an old compression fracture of T12 with 60-70% loss of the vertebral body height anteriorly. Visualized Abdomen: The visualized upper abdominal organs are without evidence of an enhancing mass. There are postoperative changes consistent with a cholecystectomy. Other: None. IMPRESSION: No evidence of an aortic dissection or pulmonary embolus. Moderate hiatal hernia. Degenerative changes of the thoracic spine with an old compression fracture of T12. RADIA
[2018-06-27 17:21] VITALS: BP 151/98
== END 2018-06-27 17:26 | disposition home or self-care (01) ==
LOC: EDUNIT# → ED 14:25
DX: K44.9 Diaphragmatic hernia without obstruction or gangrene (principal); R07.9 Chest pain, unspecified; C90.01 Multiple myeloma in remission; Z92.21 Personal history of antineoplastic chemotherapy
CPT/HCPCS: 36415; 71046; 71275; 80053; 83690; 84484; 85025; 93005; 99283; 99284; Q9967

== ENCOUNTER 2018-10-14 08:00 | Outpatient (CLI) | payer MEDICARE, OTHER | END 2018-10-14 23:59 | disposition home or self-care (01) | LOC: LAB.R 08:00 | PROVIDERS: ATTEND Physician Assistant Medical | DX: N39.0 Urinary tract infection, site not specified (principal) | CPT/HCPCS: 87086 ==

== ENCOUNTER 2018-10-29 10:05 | Outpatient (CLI) | payer MEDICARE, OTHER ==
--- NOTE | 2018-10-29 12:51 | DEXA Report ---
Reason: MENOPAUSAL Procedure Date: 10/29/2018 Accession Number: [id number] / [id number] Procedure: DEX - Dexa Spine and/or Hip CPT Code: FULL RESULT: EXAM: Dexa Spine and/or Hip DATE: 10/29/2018 11:04 AM CLINICAL HISTORY: MENOPAUSAL TECHNIQUE: Dual energy x-ray absorptiometry (DXA) was performed on a [employer] System. Regions measured are the AP Spine, femoral neck, and if needed forearm. COMPARISON: None. In accordance with the International Society for Clinical Densitometry (ISCD) guidelines, data from previous exams may be reanalyzed using current recommendations and techniques. This is done to allow a more accurate basis for comparison with the current study. FINDINGS: The data for the lumbar spine is as follows: BMD (g/cm/cm) T-SCORE Z-SCORE REGION L1 1.240 0.9 2.1 L2 1.165 -0.3 0.9 L3 1.169 -0.3 0.9 L4 1.324 1.0 2.2 TOTAL 1.227 0.4 1.6 NOTE: All evaluable vertebrae are used for classification The data for the hip is as follows: BMD (g/cm/cm) T-SCORE Z-SCORE REGION Neck 0.704 -2.4 -1.2 TOTAL 0.822 -1.5 -0.6 NOTE: The femoral neck or total proximal femur, whichever is lowest, is used for classification. IMPRESSION: THE WHO CLASSIFICATION BASED ON THE INTERNATIONAL REFERENCE STANDARD IS OSTEOPENIA. THE FRACTURE RISK IS INCREASED. RECOMMENDATION: Patients with diagnosis of osteoporosis or osteopenia should have regular bone mineral density assessment. For those eligible for Medicare, routine testing is allowed once every 2 years. Testing frequency can be increased for patients who have rapidly progressing disease or for those who are receiving medical therapy to restore bone mass. COMMENT: World Health Organization (WHO) definitions for osteoporosis and osteopenia: NORMAL BMD: T-score at -1.0 or higher, fracture risk is low OSTEOPENIA BMD: T-score between -1.0 and -2.5, fracture risk is increased. OSTEOPOROSIS BMD: T-score at -2.5 or lower, fracture risk is high. National Osteoporosis Foundation recommends: 1. Obtain adequate dietary calcium (at least 1200 mg per day) and vitamin D (400-800 international units per day). 2. Participate, as appropriate, in regular weightbearing and muscle-strengthening exercise. 3. Avoid tobacco use and reduce alcohol and caffeine intake. 4. For more detailed information see the website at www.NOF.org.
== END 2018-10-29 10:06 | disposition home or self-care (01) ==
LOC: DI 10:05
PROVIDERS: ATTEND Internal Medicine
DX: M85.88 Other specified disorders of bone density and structure, other site (principal)
CPT/HCPCS: 77080

== ENCOUNTER 2018-12-03 08:37 | Outpatient (CLI) | payer MEDICARE, OTHER ==
[2018-12-03 17:48] LABS: ALBUMIN 3.8 g/dL (3.2-5.5); ALBUMIN/GLOBULIN RATIO 1.5 (1.0-2.2); ALKALINE PHOSPHATASE 68 IU/L (42-121); ALT ALANINE AMINOTRANSFERASE 25 IU/L (10-60); AST ASPARTATE AMINOTRANSFERASE 19 IU/L (10-42); BILIRUBIN,TOTAL 0.8 mg/dL (0.2-1.0); BUN - BLOOD UREA NITROGEN 8 mg/dL (6-20); CALCIUM 9.4 mg/dL (8.5-10.3); CARBON DIOXIDE - CO2 31 mmol/L (21-32); CHLORIDE 110 mmol/L (101-111); CHOLESTEROL 162 mg/dL; CREATININE 0.6 mg/dL (0.4-1.0); GFR - MDRD 100 (>89); GLUCOSE 95 mg/dL (70-100); HDL CHOLESTEROL 54 mg/dL; LDL CHOLESTEROL,CALCULATED 89 mg/dL; LDL/HDL RATIO 1.6 (<4.4); SODIUM 151 mmol/L (135-145); TOTAL PROTEIN 6.4 g/dL (6.7-8.2); VLDL CHOLESTEROL 19 mg/dL
== END 2018-12-03 23:59 | disposition home or self-care (01) ==
LOC: LAB.F 08:37
PROVIDERS: ATTEND Internal Medicine
DX: I10 Essential (primary) hypertension (principal)
CPT/HCPCS: 36415; 80053; 80061; 83721

== ENCOUNTER 2018-12-07 13:04 | Outpatient (CLI) | payer MEDICARE, OTHER ==
[2018-12-07 18:00] LABS: CALCIUM 9.1 mg/dL (8.5-10.3); CREATININE 0.6 mg/dL (0.4-1.0)
== END 2018-12-07 13:05 | disposition home or self-care (01) ==
LOC: LAB.F 13:04
PROVIDERS: ATTEND Internal Medicine
DX: E87.0 Hyperosmolality and hypernatremia (principal)
CPT/HCPCS: 36415; 80048; 83930; 83935; 84300

== ENCOUNTER 2019-01-30 17:04 | Emergency (ER) | payer MEDICARE, OTHER ==
[2019-01-30] MEDS ORDERED: cloNIDine 0.2 MG PATCH TOP STA (18:40)
[2019-01-30] MEDS ORDERED: NITROGLYCERIN SL 0.4 MG TABLET SL STA (18:40)
[2019-01-30] MEDS ORDERED: ACETAMINOPHEN 160 MG/5 ML SUSP UDC PO STA (19:10)
[2019-01-30 19:17] LABS: ALBUMIN 3.5 g/dL (3.2-5.5); ALBUMIN/GLOBULIN RATIO 1.2 (1.0-2.2); BILIRUBIN,TOTAL 0.5 mg/dL (0.2-1.0); CALCIUM 9.4 mg/dL (8.5-10.3); CREATININE 0.5 mg/dL (0.4-1.0); TOTAL PROTEIN 6.4 g/dL (6.7-8.2)
[2019-01-30 19:35] VITALS: BP 171/96
--- NOTE | 2019-01-30 19:50 | ED Physician Documentation ---
PD HPI HEADACHE - Stated complaint Stated Complaint: HIGH BLOOD PRESSURE - Chief complaint Chief Complaint: General - History obtained from History obtained from: Patient - History of Present Illness Timing - onset: Today Timing - onset during: Light activity Timing - duration: Hours Timing - details: Gradual onset, Waxing and waning Worst headache ever?: No: Worst headache ever? Location: Front, Global Quality: Throbbing, Tightness Associated symptoms: Nausea. No: Fever, Stiff neck, Vomiting, Weakness, Numbness Worsened by: No: Light, Noise Contributing factors: Hypertension (has history of HTN and was on med that worked okay. Off it prior to recent surgery and tried to resume it after surgery but it is tablet and she is only allowed liquid diet after Izabel fundoplication for GERD 4 days ago. So she was not sure of effectiveness of the med and it tasted bad. Took BP at home and it was elevated over 200 systolic. No chest pain.). No: Recent illness, Trauma Recently seen: Surgery (4 days ago, hiatal hernia repair via laparascopy. Liquid diet only at this time.) Review of Systems Constitutional: denies: Fever Nose: denies: Rhinorrhea / runny nose, Congestion Throat: denies: Sore throat Respiratory: denies: Cough GI: reports: Abdominal Pain (postoperative mild pain), Nausea. denies: Vomiting, Diarrhea : denies: Dysuria Musculoskeletal: denies: Neck pain, Back pain Neurologic: reports: Headache. 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: Hysterectomy HEENT: Tonsil/Adenoidectomy - Present Medications Home Medications: Ambulatory Orders Medication Instructions Recorded Confirmed Aspirin 1 tab ORAL DAILY 08/22/16 11/11/17 Cholecalciferol (Vitamin D3) 1 tab ORAL DAILY 08/22/16 11/11/17 [Vitamin D3] Irbesartan 300 mg ORAL DAILY 08/22/16 11/11/17 Lenalidomide [Revlimid] 1 tab ORAL DAILY 08/22/16 11/11/17 Pantoprazole [Protonix] 40 mg PO DAILY PM 10/24/16 11/11/17 Irbesartan 11/11/17 Calcium Carbonate/Vitamin D3 06/27/18 [Calcium 600-Vit D3 800 Tablet] Multivitamin W/Minerals [Theragran 06/27/18 M] Sucralfate [Carafate] 1 gm PO ACHS #120 tablet 06/27/18 raNITIdine [Zantac] 150 mg PO BID #60 tablet 06/27/18 cloNIDine 0.2 MG PATCH 1 each TOP Q7D #1 patch 01/30/19 [Hpnpnxvo-Yhl-9] - Allergies Allergies/Adverse Reactions: Allergies Allergy/AdvReac Type Severity Reaction Status Date / Time amoxicillin [From Augmentin] AdvReac Rash Verified 01/30/19 17:12 clavulanic acid AdvReac Rash Verified 01/30/19 17:12 [From Augmentin] lorazepam AdvReac Hallucinati Verified 01/30/19 17:12 ons ondansetron [From Zofran] AdvReac Headache Verified 01/30/19 17:12 - Social History Does the pt smoke?: No Smoking Status: Never smoker Does the pt drink ETOH?: Yes Does the pt have substance abuse?: No - Immunizations Immunizations are current?: Yes PD ED PE NORMAL - Vitals Vital signs reviewed: Yes - General General: Alert and oriented X 3, No acute distress, Well developed/nourished - HEENT HEENT: Pharynx benign - Neck Neck: Supple, no meningeal sign, No adenopathy - Cardiac Cardiac: RRR, No murmur - Respiratory Respiratory: Clear bilaterally - Abdomen Abdomen: Normal bowel sounds, Soft, Non distended, No organomegaly, Other (mild tenderness at surgical sites, without signs of infection. 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 No: ST elevation c/w ischemia, ST depression - Labs Labs: Laboratory Tests 01/30/19 18:50 Sodium 139 Potassium 3.9 Chloride 104 Carbon Dioxide 24 Anion Gap 11.0 BUN 7 Creatinine 0.5 Estimated GFR (MDRD) 124 Glucose 106 H Calcium 9.4 Total Bilirubin 0.5 AST 124 H ALT 829 H Alkaline Phosphatase 189 H Total Protein 6.4 L Albumin 3.5 Globulin 2.9 Albumin/Globulin Ratio 1.2 Lipase 19 L PD MEDICAL DECISION MAKING - ED course Complexity details: considered differential (BP is better here and headache improved. Will substitute for her oral tablet BP med for short term, until she can resume more regular diet. Can try Clonidine patch as alternative (versus liquid BP med). ), d/w patient Departure - Departure Disposition: Home, Self Care Clinical Impression: Hypertensive urgency Headache Qualifiers: Headache type: unspecified Headache chronicity pattern: acute headache Intractability: not intractable Qualified Code(s): R51 - Headache Condition: Stable Record reviewed to determine appropriate education?: Yes Follow-Up: Raciel Ulrich MD [Primary Care Provider] - Prescriptions: cloNIDine 0.2 MG PATCH [Jgchmtkh-Zsq-2] 1 each TOP Q7D #1 patch Comments: Keep the clonidine patch on for a week. Replace it at that time with a new one if you are still not able to take your oral blood pressure medicine. Recheck with your primary care next week. Have them recheck your liver enzymes in a week or 2 to ensure they are improving. I presume the elevation in is from effects of surgery. It could also been some bruising of it when you fell. I would assume it will resolve. Discharge Date/Time: 01/30/19 19:55
== END 2019-01-30 19:55 | disposition home or self-care (01) ==
LOC: ED 17:04
DX: I16.0 Hypertensive urgency (principal); R51 Headache; R11.0 Nausea; K21.9 Gastro-esophageal reflux disease without esophagitis; Z98.890 Other specified postprocedural states; Z79.82 Long term (current) use of aspirin
CPT/HCPCS: 36415; 80053; 83690; 93005; 99283; 99284; A9270

== ENCOUNTER 2019-02-05 10:31 | Outpatient (CLI) | payer MEDICARE, OTHER ==
[2019-02-05 11:00] LABS: BASOPHILS % (AUTO) 0.7 %; EOSINOPHILS # (AUTO) 0.1 10^3/uL (0.0-0.7); EOSINOPHILS % (AUTO) 2.3 %; HGB - HEMOGLOBIN 14.1 g/dL (12.0-16.0); LYMPHOCYTES # (AUTO) 1.1 10^3/uL (1.5-3.5); LYMPHOCYTES % (AUTO) 24.6 %; MEAN CORPUSCULAR HEMOGLOBIN 32.4 pg (27.0-31.0); MEAN CORPUSCULAR HGB CONC 33.8 g/dL (32.0-36.0); MEAN CORPUSCULAR VOLUME 95.9 fL (81.0-99.0); MEAN PLATELET VOLUME 9.9 fL (7.9-10.8); MONOCYTES # (AUTO) 0.5 10^3/uL (0.0-1.0); MONOCYTES % (AUTO) 10.7 %; NEUTROPHILS # (AUTO) 2.7 10^3/uL (1.5-6.6); PLT - PLATELET COUNT 190 10^3/uL (130-450); RED BLOOD COUNT 4.35 10^6/uL (4.20-5.40); RED CELL DISTRIBUTION WIDTH 13.3 % (12.0-15.0); WHITE BLOOD COUNT 4.4 x10^3/uL (4.8-10.8)
[2019-02-05 11:20] LABS: ALBUMIN 3.8 g/dL (3.2-5.5); ALBUMIN/GLOBULIN RATIO 1.3 (1.0-2.2); BILIRUBIN,DIRECT 0.1 mg/dL (0.1-0.5); BILIRUBIN,TOTAL 0.6 mg/dL (0.2-1.0); CALCIUM 9.3 mg/dL (8.5-10.3); CREATININE 0.6 mg/dL (0.4-1.0); TOTAL PROTEIN 6.8 g/dL (6.7-8.2)
--- NOTE | 2019-02-05 12:12 | Ultrasound Report ---
Reason: ELEVATED LIVER ENZYMES Procedure Date: 02/05/2019 Accession Number: [id number] / [id number] Procedure: US - Abdomen Limited CPT Code: FULL RESULT: EXAM: ABDOMEN ULTRASOUND LIMITED, RUQ EXAM DATE: 02/05/2019 11:09 AM. CLINICAL HISTORY: Elevated liver enzymes. COMPARISON: ABDOMEN LIMITED 11/11/2017 4:38 AM. TECHNIQUE: Real-time scanning was performed with static images obtained. FINDINGS: Liver: Normal in size and echotexture. 13 cm. Main portal vein flow: Hepatopetal. Gallbladder: Surgically absent. No tenderness to imaging over the right upper quadrant. Biliary System: CBD measures 2 mm. No intrahepatic or extrahepatic ductal dilatation. Other: None. IMPRESSION: Status post cholecystectomy. No specific abnormalities demonstrated. RADIA
--- NOTE | 2019-02-05 12:51 | XRAY Report ---
Reason: ELEVATED LIVER ENZYMES, RIB PAIN, RT, ABD PAIN Procedure Date: 02/05/2019 Accession Number: [id number] / [id number] Procedure: XR - Abdomen 2 View X-Ray CPT Code: 02395 FULL RESULT: EXAM: ABDOMEN RADIOGRAPHY 2 VIEWS EXAM DATE: 02/05/2019. CLINICAL HISTORY: Elevated liver enzymes. Rib pain. Right abdominal pain. Hiatal hernia repair on 01/26/2019. COMPARISON: Chest and right rib radiography that at the same time. TECHNIQUE: AP supine and upright views. FINDINGS: Lung Bases: The lungs are clear. Blunting of the left lateral costal phrenic angle. Bowel Gas Pattern: Gas scattered in nondistended small bowel and colon, no bowel dilatation. No abnormal air-fluid levels. Free Air: None. Soft Tissues: Right upper abdominal cholecystectomy clips. Bones: Degenerative changes of the spine. Acute fractures of the anterior right eighth and ninth ribs, better demonstrated on rib radiography done at the same time. Healed fracture of the anterior right 10th rib. IMPRESSION: Acute fractures of the anterior right eighth and ninth ribs. No acute abnormality of the abdomen. Status post cholecystectomy. Small left pleural effusion. RADIA
--- NOTE | 2019-02-05 12:53 | XRAY Report ---
Reason: ELEVATED LIVER ENZYMES, RIB PAIN, RT, ABD PAIN Procedure Date: 02/05/2019 Accession Number: [id number] / [id number] Procedure: XR - Ribs w/PA Chest RT CPT Code: FULL RESULT: EXAM: RIGHT RIB RADIOGRAPHY 3 VIEWS EXAM DATE: 02/05/2019. CLINICAL HISTORY: Right lower rib pain. Right abdominal pain. Recent fall. COMPARISON: CHEST 2 VIEW 06/27/2018 2:47 PM. TECHNIQUE: PA view of the chest and both oblique views of the right ribs FINDINGS: Bones: Acute slightly displaced fractures of the anterior right eighth and ninth ribs. Degenerative changes of the spine and the left shoulder. Lungs: Normal vasculature. Lungs are clear. Blunted left costophrenic angle. No pneumothorax. Mediastinum: Normal cardiac and mediastinal contours. Hiatal hernia is no longer present. IMPRESSION: Slightly displaced acute fractures of the right anterior eighth and ninth ribs. No right pleural fluid, pneumothorax, or pulmonary atelectasis. Small left pleural effusion. RADIA
== END 2019-02-05 10:32 | disposition home or self-care (01) ==
LOC: DI 10:31
PROVIDERS: ATTEND Family Medicine
DX: S22.41XA Multiple fractures of ribs, right side, initial encounter for closed fracture (principal); R10.9 Unspecified abdominal pain; Z90.49 Acquired absence of other specified parts of digestive tract; J90 Pleural effusion, not elsewhere classified; R74.8 Abnormal levels of other serum enzymes
CPT/HCPCS: 36415; 74019; 76705; 80053; 82150; 82248; 83690; 85025

== ENCOUNTER 2019-02-18 12:20 | Outpatient (CLI) | payer MEDICARE, OTHER ==
--- NOTE | 2019-02-18 15:13 | XRAY Report ---
Reason: ABDOMINAL PAIN Procedure Date: 02/18/2019 Accession Number: [id number] / [id number] Procedure: XRS - Abdomen 2 View X-Ray CPT Code: 14876 FULL RESULT: EXAM: ABDOMEN RADIOGRAPHY EXAM DATE: 02/18/2019 02:18 PM. CLINICAL HISTORY: Abdominal pain. COMPARISON: RIBS W/PA CHEST RT 02/05/2019 11:41 AM ABDOMEN 2 VIEW 02/05/2019 11:41 AM. TECHNIQUE: 2 views. FINDINGS: Lung Bases: No acute consolidation is identified. Bowel Gas Pattern: Within normal limits. No dilated loops or abnormal fluid levels. Free Air: No free air detected beneath the diaphragm.. Other: Cholecystectomy clips. IMPRESSION: Nonobstructive bowel gas pattern. RADIA
[2019-02-18 17:46] LABS: BASOPHILS % (AUTO) 0.7 %; EOSINOPHILS # (AUTO) 0.1 10^3/uL (0.0-0.7); EOSINOPHILS % (AUTO) 1.4 %; HGB - HEMOGLOBIN 14.2 g/dL (12.0-16.0); LYMPHOCYTES # (AUTO) 1.2 10^3/uL (1.5-3.5); LYMPHOCYTES % (AUTO) 27.4 %; MEAN CORPUSCULAR HEMOGLOBIN 32.6 pg (27.0-31.0); MEAN CORPUSCULAR HGB CONC 33.9 g/dL (32.0-36.0); MEAN CORPUSCULAR VOLUME 96.3 fL (81.0-99.0); MEAN PLATELET VOLUME 11.2 fL (7.9-10.8); MONOCYTES # (AUTO) 0.6 10^3/uL (0.0-1.0); MONOCYTES % (AUTO) 12.8 %; NEUTROPHILS # (AUTO) 2.5 10^3/uL (1.5-6.6); NEUTROPHILS % (AUTO) 57.5 %; PLT - PLATELET COUNT 156 10^3/uL (130-450); RED BLOOD COUNT 4.35 10^6/uL (4.20-5.40); RED CELL DISTRIBUTION WIDTH 13.1 % (12.0-15.0); WHITE BLOOD COUNT 4.3 x10^3/uL (4.8-10.8)
[2019-02-18 18:05] LABS: ALBUMIN 3.9 g/dL (3.2-5.5); ALBUMIN/GLOBULIN RATIO 1.5 (1.0-2.2); BILIRUBIN,DIRECT 0.2 mg/dL (0.1-0.5); BILIRUBIN,TOTAL 0.6 mg/dL (0.2-1.0); CALCIUM 9.4 mg/dL (8.5-10.3); CREATININE 0.7 mg/dL (0.4-1.0); TOTAL PROTEIN 6.5 g/dL (6.7-8.2)
--- NOTE | 2019-02-19 10:44 | XRAY Report ---
Reason: RIB PAIN, RIGHT SIDED, ABD PAIN Procedure Date: 02/18/2019 Accession Number: [id number] / [id number] Procedure: XRS - Ribs w/PA Chest RT CPT Code: FULL RESULT: EXAM: RIGHT RIB RADIOGRAPHY EXAM DATE: 02/18/2019 02:18 PM. CLINICAL HISTORY: Rib pain, right-sided, abdominal pain. COMPARISON: RIBS W/PA CHEST RT 02/05/2019 11:41 AM. TECHNIQUE: 1 view of the chest and 2 views of the ribs. FINDINGS: Bones: No significant change in appearance of anterior right eighth and ninth rib fractures. No new fractures detected. No pneumothorax or lung contusions/consolidations. Heart size within normal limits. Lungs: No focal opacities. No pneumothorax. No pleural effusions. Mediastinum: Heart and mediastinal contours are unremarkable. Other: None. IMPRESSION: Stable appearance of right eighth and ninth rib fractures. RADIA
== END 2019-02-18 12:21 | disposition home or self-care (01) ==
LOC: DI.S 12:20
PROVIDERS: ATTEND Family Medicine
DX: S22.41XA Multiple fractures of ribs, right side, initial encounter for closed fracture (principal); R10.9 Unspecified abdominal pain; R74.8 Abnormal levels of other serum enzymes
CPT/HCPCS: 36415; 74019; 80053; 80076; 82150; 83690; 85025

== ENCOUNTER 2019-05-26 10:41 | Outpatient (CLI) | payer MEDICARE, OTHER | END 2019-05-26 10:42 | disposition home or self-care (01) | LOC: LAB.S 10:41 | PROVIDERS: ATTEND Family Medicine | DX: L65.9 Nonscarring hair loss, unspecified (principal); R53.83 Other fatigue | CPT/HCPCS: 36415; 84443 ==

== ENCOUNTER 2019-08-30 13:36 | Outpatient (CLI) | payer MEDICARE, OTHER ==
--- NOTE | 2019-08-30 14:44 | Mammography Report ---
Reason: ROUTINE MAMMO Procedure Date: 08/30/2019 Accession Number: [id number] / [id number] Procedure: [facility]ON - Screening Mammo w/Efren CPT Code: Final Report FULL RESULT: EXAM: Screening Mammo w/Efren DATE: 08/30/2019 2:02 PM CLINICAL HISTORY: Routine screening. Mother with breast cancer. Personal history of bilateral reduction mammoplasty. TECHNIQUE: (B) - Bilateral CC and MLO views were obtained. COMPARISON: 07/04/2017, 10/14/2014, 10/13/2012 and 12/06/2009. PARENCHYMAL PATTERN: (A) - The breasts demonstrate scattered fibroglandular densities bilaterally. FINDINGS: Right breast: No significant interval change. There are no suspicious masses, calcifications, or areas of distortion. Left breast: Question developing small nodule with one possible punctate calcification left upper outer quadrant 4 to 5 cm from the nipple. Otherwise stable unremarkable left breast. IMPRESSION: Incomplete examination. BI-RADS category 0. Needs additional evaluation left breast by spot compression and true lateral views. If density persists consider ultrasound. Negative right breast. RECOMMENDATION: (ADDMU) - Additional views using both Mammography and Ultrasound recommended. Left breast BI-RADS CATEGORY: (0) - Incomplete Examination - need additional evaluation. STANDARD QUALIFYING STATEMENTS: 1. This examination was not reviewed with the aid of Computer-Aided Detection (CAD). 2. A negative or benign imaging report should not preclude biopsy if clinically suspicious findings are present. 3. Dense breasts may obscure an underlying neoplasm. 4. This examination was reviewed with the aid of 3D breast imaging (tomosynthesis).
== END 2019-08-30 13:37 | disposition home or self-care (01) ==
LOC: DI 13:36
DX: Z12.31 Encounter for screening mammogram for malignant neoplasm of breast (principal); N63.21 Unspecified lump in the left breast, upper outer quadrant; Z80.3 Family history of malignant neoplasm of breast
CPT/HCPCS: 77063; 77067

== ENCOUNTER 2019-09-08 08:28 | Outpatient (CLI) | payer MEDICARE, OTHER ==
--- NOTE | 2019-09-08 10:07 | Mammography Report ---
Reason: ABNORMAL MAMMOGRAM Procedure Date: 09/08/2019 Accession Number: [id number] / [id number] Procedure: SHARRON - Diag Special Views Dig LT CPT Code: Final Report FULL RESULT: EXAM: Diag Special Views Dig LT, Breast Unilateral Limited DATE: 09/08/2019 9:12 AM CLINICAL HISTORY: Follow-up abnormal mammogram 08/30/2019 COMPARISON: 08/30/2019 MAMMOGRAM: TECHNIQUE: (L) - Left. CC and MLO views were obtained. PARENCHYMAL PATTERN: (A) - The breasts demonstrate scattered fibroglandular densities bilaterally. FINDINGS: The nodular density in the left upper outer quadrant 4 cm from the nipple persists on additional views. LEFT BREAST ULTRASOUND: TECHNIQUE: Real time scanning by the industrial safety and health technician with saved static images reviewed. FINDINGS: At the 12:30 position 2 cm from the nipple there is a 4 x 4 x 2 mm ovoid well-circumscribed probable lymph node. No other cystic or solid mass, abnormal fluid collection, or other abnormality is seen. IMPRESSION: Probably Benign. BI-RADS category 3. Left breast RECOMMENDATION: (6MOS) - Recommend 6 month follow-up exam. Left breast mammogram BI-RADS CATEGORY: (3) - Probably Benign. STANDARD QUALIFYING STATEMENTS: 1. This examination was not reviewed with the aid of Computer-Aided Detection (CAD). 2. A negative or benign imaging report should not preclude biopsy if clinically suspicious findings are present. 3. Dense breasts may obscure an underlying neoplasm. 4. This examination was reviewed with the aid of 3D breast imaging (tomosynthesis).
== END 2019-09-08 08:29 | disposition home or self-care (01) ==
LOC: DI 08:28
PROVIDERS: ATTEND Internal Medicine
DX: R92.8 Other abnormal and inconclusive findings on diagnostic imaging of breast (principal)
CPT/HCPCS: 76642